=== PATIENT | female | born 1950 | race Two or more races ===

== ENCOUNTER 2021-03-26 09:42 | Emergency (ER) | payer MEDICARE, MEDICAID ==
[~2021-03-26] VITALS: Ht 157.5 cm; Wt 54.5 kg
[2021-03-26 11:17] LABS: BASOPHILS % (AUTO) 0.1 % (0.0-2.0); EOSINOPHILS % (AUTO) 2.6 % (1.0-6.0); HEMATOCRIT 30.9 % (36-46); LYMPHOCYTES # (AUTO) 1.5 K/uL (1.0-4.8); LYMPHOCYTES % (AUTO) 12.9 % (22.0-44.0); MEAN CORPUSCULAR HEMOGLOBIN 27.8 pg (26.0-34.0); MEAN CORPUSCULAR HGB CONC 32.4 G/dL (31.0-37.0); MEAN CORPUSCULAR VOLUME 86 fL (80-100); MONOCYTES # (AUTO) 0.7 K/uL (0.1-1.0); MONOCYTES % (AUTO) 6.2 % (2.0-9.0); NEUTROPHILS # (AUTO) 8.9 K/uL (1.8-7.7); NEUTROPHILS % (AUTO) 78.2 % (40.0-70.0); PLATELET COUNT (AUTO) 192 K/uL (150-450); RED CELL DISTRIBUTION WIDTH 13.5 % (11.5-14.5)
[2021-03-26 11:20] LABS: ALBUMIN 3.2 g/dL (3.4-5.0); BILIRUBIN,TOTAL 0.3 mg/dL (0.1-1.0); CREATININE 2.36 mg/dL (0.60-1.30); TOTAL PROTEIN, SERUM 7.9 g/dL (6.4-8.2)
[2021-03-26 11:26] LABS: POTASSIUM 6.6 mmol/L (3.5-5.1)
[2021-03-26] MEDS ORDERED: LEVO25TA9 PO (11:28)
[2021-03-26] MEDS ORDERED: KETO5DRO75 OU (11:28)
[2021-03-26] MEDS ORDERED: INSLAN SQ (11:28)
[2021-03-26] MEDS ORDERED: CALC-789 PO (11:28)
[2021-03-26] MEDS ORDERED: LISI-893 PO (11:28)
[2021-03-26] MEDS ORDERED: ATOR40TA28 PO (11:28)
[2021-03-26] MEDS ORDERED: CALCIUM GLUCONATE 0.465 MEQ/ML 10 ML VIAL IVP ONE (11:45)
[2021-03-26] MEDS ORDERED: DEXTROSE 50%-WATER 25 GM/50 ML SYRINGE IVP ONE (11:45)
[2021-03-26] MEDS ORDERED: INSULIN REGULAR, HUMAN 100 UNITS/ML IVP ONE (11:45)
[2021-03-26] MEDS ORDERED: SODIUM BICARBONATE [ADULT] 8.4% 50 MEQ/50 ML SYRINGE IVP ONE (11:45)
[2021-03-26] MEDS ORDERED: ONDANSETRON HCL 4 MG/2 ML VIAL IVP PRN (12:00)
[2021-03-26] MEDS ORDERED: 0.9% SODIUM CHLORIDE 10 ML SYRINGE IVP PRN (12:00)
[2021-03-26] MEDS ORDERED: ACETAMINOPHEN 325 MG TABLET PO PRN (12:00)
[2021-03-26 12:26] LABS: COVID AG,FIA SOURCE NASOPHARYNGEAL
[2021-03-26 16:45] VITALS: BP 180/85
[2021-04-01 09:40] LABS: GLUCOMETER DEV NAME(LOC) ERT.5; GLUCOSE,POINT OF CARE 97 MG/DL (70-110)
== END 2021-03-26 17:13 | disposition left against medical advice (07) ==
LOC: EMS 09:46
DX: E87.5 Hyperkalemia (principal); R19.7 Diarrhea, unspecified; N17.9 Acute kidney failure, unspecified; E11.9 Type 2 diabetes mellitus without complications; Z20.822 Contact with and (suspected) exposure to COVID-19
CPT/HCPCS: 36415; 71045; 80053; 82962; 84484; 85025; 87426; 93005; 96374; 96375; 99285; J0610; J1815; J3490